=== PATIENT | male | born 1995 | race Hispanic/Latino ===

== ENCOUNTER 2018-08-28 08:29 | Inpatient (IN) | payer BC ==
[2018-08-28 09:11] LABS: Base Excess-Venous -10.4 mmol/L (-2.0 to 3.0); Bicarbonate (HCO3v) 14.4 mmol/L (22.0-28.0); CO2 Tension (PvCO2) 29.9 mmHg (40.0-50.0); Calcium, Ionized 1.04 mmol/L (See Comments:); Chloride 106 mmol/L (98-107); Hemoglobin - Calc 19.4 g/dL (14.0-18.0); O2 Tension (PvO2) 139.7 mmHg (35.0-45.0); Potassium 4.8 mmol/L (3.5-5.1); Sodium 131 mmol/L (138-145); T. Carbon Dioxide 15.3 mmol/L (22.0-28.0); pH (Venous) 7.291 (7.320-7.430); vO2 Saturation-calc 98.9 % (60.0-85.0)
[2018-08-28 09:30] LABS: Hemoglobin 16.9 g/dL (14.0-18.0); Mean Corpuscular HGB CONC 34.6 g/dL (32.0-36.0); Mean Corpuscular Hemoglobin 30.2 pg (27.0-31.0); Mean Corpuscular Volume 87.3 fL (78.0-98.0); Mean Platelet Volume 11.4 fL (7.4-10.4); Platelet Count 222 thou/uL (130-400); RBC Distribution Width 11.6 % (11.5-14.5); White Blood Cell (WBC) Count 21.5 thou/uL (4.8-10.8)
[2018-08-28 09:42] LABS: Band 24 % (5-11); Large Platelets SLIGHT; Lymphocytes 4 % (21-51); MDiff Complete? YES; Monocytes 3 % (0-10); Neutrophil 69 % (42-75); Platelet Morphology Comment Appears Adequate
[2018-08-28] MEDS ORDERED: Ondansetron PF 4 MG/2 ML Vial ONE (09:44)
[2018-08-28 10:06] LABS: Bilirubin Negative (Negative); Blood, Urine Moderate (Negative); Clarity CLEAR (Clear); Glucose, Urine (Dipstick) >=1000 mg/dL (Negative); Leukocyte Negative (Negative); Nitrite Negative (Negative); Protein, Urine (Dipstick) 300 mg/dL (Neg-Trace); Specific Gravity, Urine 1.039 (1.002-1.036); Urobilinogen 0.2 mg/dL (0.2-1.0); pH, Urine 5.5 (5.0-9.0)
[2018-08-28 10:11] LABS: Bacteria/HPF None Seen HPF (None Seen); Hyaline Casts/LPF 0-3 HYALINE CAST LPF (0-3 Hyaline); RBC/HPF 0-3 HPF (0-3); Squamous Epithelial None Seen HPF (0-3); WBC/HPF 0-3 HPF (0-3)
[2018-08-28] MEDS ORDERED: Insulin Regular 300 UNITS/3 ML VIAL ONE (10:13)
[2018-08-28] MEDS ORDERED: Morphine 4 MG/ML VIAL ONE (10:13)
--- NOTE | 2018-08-28 10:21 | CT ---
FCT of the abdomen and pelvis with IV contrast INDICATION: History of high blood sugar and abdominal pain FINDINGS: There is prominent fatty infiltration of the liver. There is edematous changes surrounding the pancreatic parenchyma without evidence of necrosis. There is mild fluid within the anterior parar enal space. The spleen, adrenal glands and kidneys appear within normal limits. There is mild wall th ickening of the duodenum which is likely reactive to the pancreatitis. There is normal in the right l ower quadrant. The bladder, rectum and perirectal soft tissues are unremarkable. No acute osseous ab normality is evident. IMPRESSION: 1. Uncomplicated acute pancreatitis. 2. Fatty liver 3. Some reactive wall thickening involving the duodenum likely from the patient's pancreatitis.
[2018-08-28] MEDS ORDERED: NS 0.9% w/ 20 MEQ KCL 1,000 ML IV SCH (10:30)
[2018-08-28 11:54] LABS: Chloride 103 mmol/L (98-107); Potassium 5.8 mmol/L (3.5-5.1); Sodium 133 mmol/L (136-145)
[2018-08-28 11:55] LABS: Anion Gap 26 mmol/L (10-20); BUN (Urea Nitrogen) 12 mg/dL (8.9-20.6); Calc. Creatinine Clearance 0 mL/min (70-130); Calcium 7.2 mg/dL (7.8-10.44); Estimated GFR-MDRD Greater than 90; Glucose 389 mg/dL (70-105)
[2018-08-28 11:56] LABS: AST (SGOT) 40 U/L (5-34); Alkaline Phosphatase 126 U/L (40-150); Bilirubin, Total 0.4 mg/dL (0.2-1.2); Globulin 2.1 g/dL (2.4-3.5); Protein, Total 6.1 g/dL (6.0-8.3)
[2018-08-28] MEDS ORDERED: Dextrose 5 %-0.45 % NaCl 1,000 ML IV PRN (11:56)
[2018-08-28] MEDS ORDERED: CCU Electrolyte Replacement 1 EACH IVPB ONE (11:56)
[2018-08-28] MEDS ORDERED: NS 0.9% w/ 20 MEQ KCL 1,000 ML IV PRN ×2 (11:56)
[2018-08-28] MEDS ORDERED: Sodium Chloride 0.9% 1,000 ML IV PRN ×3 (11:56)
[2018-08-28 11:58] LABS: ALT (SGPT) 83 U/L (8-55)
[2018-08-28 11:59] LABS: Carbon Dioxide 10 mmol/L (22-29)
[2018-08-28] MEDS ORDERED: HUMULIN R 100 UNITS in Sodium Chloride 0.9% 100 ML IVPB SCH (12:00)
[2018-08-28] MEDS ORDERED: HYDROmorphone 0.5 MG/0.5 ML SYRINGE ONE (13:20)
[2018-08-28] MEDS ORDERED: ISOVUE-370 76%-LOCM 1 ML ONE (14:55)
[2018-08-28 15:30] LABS: Sodium 134 mmol/L (136-145)
[2018-08-28 15:31] LABS: BUN (Urea Nitrogen) 11 mg/dL (8.9-20.6); Calc. Creatinine Clearance 0 mL/min (70-130); Carbon Dioxide Less than 16 mmol/L (22-29); Chloride 104 mmol/L (98-107); Estimated GFR-MDRD Greater than 90; Potassium 6.2 mmol/L (3.5-5.1)
[2018-08-28 15:32] LABS: Glucose 326 mg/dL (70-105)
[2018-08-28 17:31] VITALS: BMI 43.0
[2018-08-28 17:51] LABS: Sodium 136 mmol/L (136-145)
[2018-08-28 17:54] LABS: BUN (Urea Nitrogen) 10 mg/dL (8.9-20.6); Calc. Creatinine Clearance 203 mL/min (70-130); Carbon Dioxide 10 mmol/L (22-29); Chloride 110 mmol/L (98-107); Estimated GFR-MDRD Greater than 90; Potassium 6.7 mmol/L (3.5-5.1)
[2018-08-28 17:55] LABS: Calcium 7.8 mg/dL (7.8-10.44); Glucose 274 mg/dL (70-105)
[2018-08-28 17:57] LABS: Anion Gap 24 mmol/L (10-20)
[2018-08-28] MEDS ORDERED: Morphine 4 MG/ML VIAL IV PRN (18:21)
[2018-08-28] MEDS ORDERED: Calcium Gluconate 4.6 MEQ in Sodium Chloride 0.9% 100 ML IVPB SCH ×2 (18:30→21:00)
[2018-08-28] MEDS: Sodium Chloride 0.9% 1,000 ML IV PRN ×2 (19:31→23:13)
[2018-08-28 19:44] LABS: Sodium 127 mmol/L (136-145)
[2018-08-28 19:45] LABS: Chloride 101 mmol/L (98-107); Potassium 6.7 mmol/L (3.5-5.1)
[2018-08-28 19:47] LABS: BUN (Urea Nitrogen) 8 mg/dL (8.9-20.6); Carbon Dioxide Less than 8 mmol/L (22-29)
[2018-08-28 19:48] LABS: Calc. Creatinine Clearance 217 mL/min (70-130); Estimated GFR-MDRD Greater than 90
[2018-08-28 19:49] LABS: Calcium 7.3 mg/dL (7.8-10.44); Glucose 244 mg/dL (70-105)
[2018-08-28 20:12] LABS: Sodium 134 mmol/L (136-145)
[2018-08-28] MEDS: HUMULIN R 100 UNITS in Sodium Chloride 0.9% 100 ML IVPB SCH (20:14)
[2018-08-28 20:17] LABS: Potassium 8.2 mmol/L (3.5-5.1)
[2018-08-28 20:18] LABS: Chloride 110 mmol/L (98-107)
[2018-08-28 20:19] LABS: Carbon Dioxide 11 mmol/L (22-29)
[2018-08-28 20:20] LABS: BUN (Urea Nitrogen) 8 mg/dL (8.9-20.6); Calc. Creatinine Clearance 203 mL/min (70-130); Estimated GFR-MDRD Greater than 90
[2018-08-28 20:21] LABS: Calcium 7.3 mg/dL (7.8-10.44); Glucose 242 mg/dL (70-105)
[2018-08-28 20:22] LABS: Anion Gap 21 mmol/L (10-20)
--- NOTE | 2018-08-28 20:53 | PDOC.EVN ---
Event Note - Event Note Event Note: Called by nursing regarding DKA, K+ level 8.2 and tachycardia. Repeat K+ 5.0. Will add an additional peripheral IV with NS bolus, close monitoring or K+ level per protocol. Mild peaked T-waves on Tele, BP elevated and afebrile. Add Labetalol 20mg IV q4h prn SBP>180.
[2018-08-28 20:54] LABS: BUN (Urea Nitrogen) 6 mg/dL (8.9-20.6); Calc. Creatinine Clearance 191 mL/min (70-130); Calcium 8.4 mg/dL (7.8-10.44); Carbon Dioxide Less than 8 mmol/L (22-29); Chloride 109 mmol/L (98-107); Estimated GFR-MDRD 90; Glucose 241 mg/dL (70-105); Sodium 135 mmol/L (136-145)
[2018-08-28] MEDS ORDERED: Furosemide 20 MG/2 ML VIAL SLOW IVP SCH (21:00)
[2018-08-28] MEDS: Labetalol 5 MG/ML SYRINGE (IV ROOM) SLOW IVP PRN (22:02)
[2018-08-28] MEDS ORDERED: Sodium Chloride 0.9% 1,000 ML IV SCH (22:15)
--- NOTE | 2018-08-29 00:02 | HP ---
CHIEF COMPLAINT: Abdominal pain, nausea and vomiting. HISTORY OF PRESENT ILLNESS: The patient is a 23-year-old male with no past medical history, who presents to the hospital with complaints of abdominal pain and nausea and vomiting. The patient stated that for the past two or 3 days, he has been very thirsty, has been drinking a lot of water. Last night, he started having significant amount of nausea and vomiting, did not feel well. At this time, his mother who is a diabetic took his sugar, his sugar was in the 400s, gave him metformin hoping that that would relieve his high blood sugar. The patient continued to have significant amount of nausea, vomiting, and abdominal pain at this time. He came into the ER for further evaluation. PAST MEDICAL HISTORY: None. PAST SURGICAL HISTORY: None. FAMILY HISTORY: History of diabetes. ALLERGIES: NO KNOWN DRUG ALLERGIES. MEDICATIONS: He takes no medications. SOCIAL HISTORY: He occasionally drinks alcohol, maybe 1 beer 3 or 4 times a week. Denies any drug use or any smoking history. He lives with his parents and he is a full code. REVIEW OF SYSTEMS: All negative except for the ones mentioned above in the HPI. PHYSICAL EXAMINATION: VITAL SIGNS: Temperature of 98.8, heart rate of 120, blood pressure of 140/60, 100% on room air. GENERAL: He is awake, alert, and oriented x3. Does not appear in distress. HEENT: Normocephalic, atraumatic. No lymphadenopathy. Pupils are equal and reactive to light. CV: S1 and S2 present. No murmurs, rubs, or gallops. LUNGS: Clear to auscultation. No rhonchi or wheezes noted. ABDOMEN: Obese. Bowel sounds are present x2. He does have pain upon epigastric area and his right and left upper quadrant. NEUROLOGIC: No focal deficits noted. SKIN: No cuts, lesions, or bruises noted. LABORATORY RESULTS: As of the following; WBC of 21.5, hemoglobin of 16.9, hematocrit of 48.9, bands of 24. Chemistry; sodium of 134, potassium of 6.2, his bicarb was less than 16, anion gap was high, and his sugar on arrival was 451. He had a lipase of 742. He did have a blood gas, which indicated a VBG, pH of 7.2. He did have a CT abdomen and pelvis which indicated uncomplicated acute pancreatitis and some fatty liver. ASSESSMENT AND PLAN: The patient is a 23-year-old male, who presents to the hospital with nausea, vomiting, and abdominal pain. 1. Diabetic ketoacidosis. We will check a hemoglobin A1c. We will start the patient on insulin drip, resuscitate per DKA protocol on his fluids, n.p.o., and continue to monitor. 2. Mild pancreatitis. We will keep the patient n.p.o. for now. Continue hydration, hoping this will resolve. 3. Fatty liver. We will educate patient on weight loss, diet, and exercise. 4. Deep venous thrombosis prophylaxis. We will put the patient on subcu heparin. 5. Anion gap metabolic acidosis, most likely secondary to his diabetic ketoacidosis. The patient will be admitted into the ICU and also we will start the patient on GI prophylaxis with some Pepcid b.i.d. Job ID: [id number]
[2018-08-29 00:56] LABS: Anion Gap 14 mmol/L (10-20); BUN (Urea Nitrogen) 6 mg/dL (8.9-20.6); Calc. Creatinine Clearance 217 mL/min (70-130); Calcium 8.2 mg/dL (7.8-10.44); Carbon Dioxide 15 mmol/L (22-29); Chloride 112 mmol/L (98-107); Estimated GFR-MDRD Greater than 90; Glucose 208 mg/dL (70-105); Potassium 4.2 mmol/L (3.5-5.1); Sodium 137 mmol/L (136-145)
[2018-08-29] MEDS: D5 1/2 NS w/20 mEq KCL 1,000 ML IV PRN ×2 (03:13→06:08)
[2018-08-29] MEDS: HUMULIN R 100 UNITS in Sodium Chloride 0.9% 100 ML IVPB SCH ×2 (04:13→10:31)
[2018-08-29] MEDS: Labetalol 5 MG/ML SYRINGE (IV ROOM) SLOW IVP PRN (04:13)
[2018-08-29 05:47] LABS: Anion Gap 10 mmol/L (10-20); BUN (Urea Nitrogen) 5 mg/dL (8.9-20.6); Calc. Creatinine Clearance 229 mL/min (70-130); Calcium 8.3 mg/dL (7.8-10.44); Carbon Dioxide 19 mmol/L (22-29); Chloride 111 mmol/L (98-107); Estimated GFR-MDRD Greater than 90; Glucose 248 mg/dL (70-105); Sodium 136 mmol/L (136-145)
--- NOTE | 2018-08-29 14:33 | EKG ---
Test Reason : STAT Blood Pressure : / mmHG Vent. Rate : 121 BPM Atrial Rate : 121 BPM P-R Int : 164 ms QRS Dur : 088 ms QT Int : 310 ms P-R-T Axes : 015 132 011 degrees QTc Int : 440 ms Sinus tachycardia Right axis deviation Abnormal ECG No previous ECGs available Confirmed by FER RAMOS, DR. Green ([id number]) on 08/29/2018 2:32:37 PM Referred By: Corky WILEY Confirmed By:DR. Peter MONROE MD
[2018-08-29] MEDS ORDERED: D5 1/2 NS w/20 mEq KCL 1,000 ML IV PRN (14:55)
--- NOTE | 2018-08-29 15:24 | PRG ---
DATE OF SERVICE: 08/29/2018 SUBJECTIVE: The patient is seen and examined at the bedside. The patient's and his mother are present in the room. He denies any fever or chills at home. He denies any dysuria. He is feeling better. He does not vomit. He does not have any nausea anymore. OBJECTIVE: VITAL SIGNS: Blood pressure is 132/85, pulse is 104, temperature is 99.4. respiratory rate is about 30, O2 saturation is 95% on room air. HEENT: His head is atraumatic and normocephalic. Eyes are PERRLA. Sclerae are nonicteric. Oral mucosa is moist. NECK: Supple, obese. LUNGS: Clear. HEART: S1, S2 normal. No S3. No S4. Tachycardic. ABDOMEN: Obese. Bowel sounds are present. Nondistended. No organomegaly. EXTREMITIES: No clubbing, cyanosis, or edema. NEUROLOGICAL EXAMINATION: He is alert and oriented x4. There is no any motor or sensory deficit present. Cranial nerves are intact. LABORATORY DATA: Labs showed sodium of 136, potassium 4.0, chloride 111, CO2 of 19, BUN 5, creatinine 0.85. Glycemia is ranging from 185 to 260. Microbiology, none. IMPRESSION: 1. Diabetic ketoacidosis. 2. Mild pancreatitis. 3. Fatty liver. 4. Morbid obesity. PLAN: The patient's anion gap is closed. We can now switch him to insulin Lantus plus aggressive sliding scale. Change Accu-Cheks to every 4 hours, his lipase level. Start him on clear liquids and full liquid diet. Job ID: [id number]
[2018-08-29] MEDS: Insulin Glargine 20 UNITS in Pre-Filled Syringe 1 EACH SC SCH (16:40)
[2018-08-29] MEDS ORDERED: Dextrose 5% in Water 1,000 ML IV PRN (19:30)
[2018-08-29] MEDS ORDERED: Dextrose 50% Abboject 50 ML SYRINGE IVP PRN (19:30)
[2018-08-29] MEDS: Insulin Regular 300 UNITS/3 ML VIAL SC PRN ×2 (20:21→23:36)
[2018-08-30] MEDS: Insulin Regular 300 UNITS/3 ML VIAL SC PRN ×4 (03:47→22:15)
[2018-08-30 04:41] LABS: #Basophils 0.1 thou/uL (0.0-0.2); #Eosinphils 0.3 thou/uL (0.0-0.7); #Lymphocytes 2.1 thou/uL (1.20-3.40); #Monocytes 0.9 thou/uL (0.11-0.59); #Neutrophils 12.2 thou/uL (1.40-6.50); %Basophils 0.4 % (0.0-1.0); %Eosinophils 1.6 % (0.0-10.0); %Lymphocytes 13.4 % (21.0-51.0); %Neutrophils 78.6 % (42.0-75.0); Hemoglobin 15.3 g/dL (14.0-18.0); Mean Corpuscular HGB CONC 33.4 g/dL (32.0-36.0); Mean Corpuscular Hemoglobin 29.9 pg (27.0-31.0); Mean Corpuscular Volume 89.5 fL (78.0-98.0); Mean Platelet Volume 10.4 fL (7.4-10.4); Platelet Count 179 thou/uL (130-400); RBC Distribution Width 11.8 % (11.5-14.5); White Blood Cell (WBC) Count 15.6 thou/uL (4.8-10.8)
[2018-08-30 05:02] LABS: Anion Gap 13 mmol/L (10-20); BUN (Urea Nitrogen) 5 mg/dL (8.9-20.6); Calc. Creatinine Clearance 266 mL/min (70-130); Carbon Dioxide 22 mmol/L (22-29); Chloride 101 mmol/L (98-107); Estimated GFR-MDRD Greater than 90; Glucose 227 mg/dL (70-105); Lipase 235 U/L (8-78); Potassium 3.8 mmol/L (3.5-5.1); Sodium 132 mmol/L (136-145)
[2018-08-30] MEDS: Insulin Glargine 20 UNITS in Pre-Filled Syringe 1 EACH SC SCH (10:02)
--- NOTE | 2018-08-30 13:56 | PRG ---
DATE OF SERVICE: SUBJECTIVE: The patient is seen and examined at the bedside. He is in B4. He is feeling significantly better. He is tolerating his clear liquids without any significant abdominal discomfort. No nausea. No vomiting. No diarrhea. OBJECTIVE: VITAL SIGNS: His blood pressure is 134/80, pulse is 111, respiratory rate is 26, and O2 saturation is 94%on room air. He is obese. His BMI is 44. HEENT: His head is atraumatic and normocephalic. His eyes are PERRLA. Sclerae nonicteric. Oral mucosa is moist. NECK: Supple, obese. LUNGS: Clear. HEART: S1 and S2 normal. No S3, no S4. ABDOMEN: Obese, soft, nontender. EXTREMITIES: No clubbing, cyanosis, or edema. NEUROLOGICAL: He is alert and oriented x4. There is no any motor or sensory deficits present. Cranial nerves are intact. LABORATORY DATA: Labs showed white count of 15.6, hemoglobin 15.3, hematocrit 45.6, platelet count is 179, neutrophils 78.6. Sodium of 132, potassium 3.8, chloride 101, CO2 of 22, BUN 5, creatinine 0.74. Glycemia is ranging from 237 to 291, lipase is 235, calcium 9.0. IMPRESSION: 1. DKA, resolved. The patient is switched to long-acting insulin plus sliding scale aggressive. 2. Mild pancreatitis, improving. We will advance his diet. 3. Fatty liver. 4. Morbid obesity. PLAN: As mentioned above, he will continue on insulin long-acting and short-acting. We will advance his diet as tolerated and he is getting education about diabetes and his weight, and he should be able to go home in the next 24 to 48 hours. Job ID: [id number]
[2018-08-30] MEDS: HYDROcodone/Acetaminophen 5/325 mg Tablet PO PRN (20:39)
[2018-08-31] MEDS: Insulin Regular 300 UNITS/3 ML VIAL SC PRN ×7 (00:42→23:17)
[2018-08-31 05:39] LABS: Anion Gap 14 mmol/L (10-20); BUN (Urea Nitrogen) 8 mg/dL (8.9-20.6); Calc. Creatinine Clearance 291 mL/min (70-130); Calcium 8.8 mg/dL (7.8-10.44); Carbon Dioxide 23 mmol/L (22-29); Chloride 100 mmol/L (98-107); Estimated GFR-MDRD Greater than 90; Glucose 196 mg/dL (70-105); Lipase 249 U/L (8-78); Sodium 134 mmol/L (136-145)
[2018-08-31] MEDS: Insulin Glargine 30 UNITS in Pre-Filled Syringe 1 EACH SC SCH (09:17)
[2018-08-31] MEDS: Potassium Chloride 20 MEQ TAB PO SCH ×3 (12:46→21:12)
--- NOTE | 2018-08-31 17:35 | PRG ---
DATE OF SERVICE: 08/31/2018 SUBJECTIVE: The patient is seen and examined at the bedside. He is doing significantly better. He is tolerating food without any abdominal pain. He is able to go to the bathroom without assistance. OBJECTIVE: VITAL SIGNS: Blood pressure is 143/82, pulse is 100, respiratory rate is 23, and oximetry is 94% on room air. He is obese. His BMI is 43.2. HEENT: His head is atraumatic and normocephalic. Eyes are PERRLA. Sclerae are nonicteric. Oral mucosa is moist. NECK: Supple. No lymphadenopathy. Thyroid is not palpable. LUNGS: Clear. HEART: S1, S2 normal. Somewhat tachycardic. No S3. No S4. ABDOMEN: Soft, obese, and nontender. EXTREMITIES: No clubbing, cyanosis, or edema. NEUROLOGIC: He is alert and oriented x4. There is no any motor or sensory deficits. Cranial nerves are intact. LABORATORY DATA: Labs showed sodium of 134, potassium 3.0, chloride 100, CO2 of 23, BUN 8, and creatinine 0.69. Glycemia is ranging from 200 to 238. Lipase is 249. Calcium is 8.8. IMPRESSION: 1. Diabetic ketoacidosis, resolved. 2. Mild pancreatitis, improving. 3. Fatty liver. 4. Morbid obesity. PLAN: The patient is started on high dose of long-acting insulin every morning. It is Lantus 30 units along with sliding scale. We will replace his potassium and he can be moved to the medical floor, and he should be able to go home tomorrow. Job ID: [id number]
[2018-08-31 20:49] LABS: Anion Gap 14 mmol/L (10-20); BUN (Urea Nitrogen) 8 mg/dL (8.9-20.6); Calc. Creatinine Clearance 244 mL/min (70-130); Calcium 9.3 mg/dL (7.8-10.44); Carbon Dioxide 25 mmol/L (22-29); Chloride 101 mmol/L (98-107); Estimated GFR-MDRD Greater than 90; Glucose 226 mg/dL (70-105); Potassium 3.6 mmol/L (3.5-5.1); Sodium 136 mmol/L (136-145)
[2018-08-31] MEDS ORDERED: diphenhydrAMINE 25 MG CAP PO PRN (22:44)
[2018-09-01] MEDS: HYDROcodone/Acetaminophen 5/325 mg Tablet PO PRN (00:05)
[2018-09-01] MEDS: Insulin Regular 300 UNITS/3 ML VIAL SC PRN ×3 (05:46→16:44)
[2018-09-01 07:21] LABS: Anion Gap 14 mmol/L (10-20); BUN (Urea Nitrogen) 10 mg/dL (8.9-20.6); Calc. Creatinine Clearance 238 mL/min (70-130); Calcium 9.1 mg/dL (7.8-10.44); Carbon Dioxide 24 mmol/L (22-29); Chloride 102 mmol/L (98-107); Estimated GFR-MDRD Greater than 90; Glucose 186 mg/dL (70-105); Sodium 136 mmol/L (136-145)
[2018-09-01] MEDS: Insulin Glargine 30 UNITS in Pre-Filled Syringe 1 EACH SC SCH (08:32)
[2018-09-01 13:19] VITALS: BP 123/82; TEMP 98.5
--- NOTE | 2018-09-02 03:58 | DIS ---
DATE OF ADMISSION: 08/28/2018 DATE OF DISCHARGE: 09/01/2018 FINAL DIAGNOSES: 1. Diabetic ketoacidosis. 2. New onset diabetes mellitus. 3. Mild pancreatitis. 4. Fatty liver. 5. Morbid obesity. HOSPITAL COURSE: The patient is a 23-year-old male with no past medical history, who presented to the emergency room with abdominal pain, nausea, and vomiting. He was found to be in diabetic ketoacidosis. In the emergency room, his heart rate was up to 120, blood pressure 140/60, temperature was 98.8. His white count was 21.5, hemoglobin 16.9, hematocrit 48.9, and he had 24 bands. Sodium 134, potassium 6.2, bicarb was less than 16, blood sugar was 451, lipase was 742. VBG showed pH of 7.2. He did have CT of the abdomen and pelvis, which indicated uncomplicated acute pancreatitis and some fatty liver. He got admitted to the [facility] with DKA protocol on IV fluids and electrolyte replacement protocol. He was kept on n.p.o., then gradually his diet was advanced. He tolerated food with occasional abdominal discomfort. His lipase is down to 200s this morning. He still has some abdominal discomfort after the dinner, but this is gradually getting better. He was gradually switched from insulin drip to long-acting and short-acting insulins gradually went down with IV fluids and n.p.o. status. His urine showed 300s of proteins and more than 1000 of glucose, more than 80 of ketones in the beginning but this gradually got better. His potassium is down to 4.0. His glycemia is ranging from 200s to 258, and he is seen and evaluated before he is discharged. PHYSICAL EXAMINATION: VITAL SIGNS: His blood pressure is 123/82, pulse is 93, temperature is 98.5, respiratory rate is 18, and O2 saturation is 96% on room air. LUNGS: Clear. HEART: S1 and S2, normal. ABDOMEN: Soft, obese, nontender. He is discharged home on two insulins, one is short-acting and this is going to cover aggressive sliding scale a.c. and at bedtime and long-acting Lantus 30 units once a day. FOLLOWUP: He will follow up with primary care physician in 1 week and the discharge time spent on this is less than 30 minutes. Job ID: [id number]
== END 2018-09-01 17:39 | disposition home or self-care (01) | DRG 637 ==
LOC: ERS 08:29 → ERHOLD 11:30 → IMCU/EMU 16:55 → T4-A 08-31 14:19
PROVIDERS: ADMIT Internal Medicine; ATTEND Internal Medicine
DX: E11.10 Type 2 diabetes mellitus with ketoacidosis without coma (principal); K85.90 Acute pancreatitis without necrosis or infection, unspecified; E87.2 Acidosis; Z68.41 Body mass index [BMI] 40.0-44.9, adult; Z79.4 Long term (current) use of insulin; K76.0 Fatty (change of) liver, not elsewhere classified; E66.01 Morbid (severe) obesity due to excess calories
CPT/HCPCS: 36415; 36416; 74177; 80048; 80053; 81003; 81015; 82010; 82330; 82803; 83690; 85025; 93005; 93010; 94760; 96360; 96361; 96365; 96366; 96375; 96376; J1170; J1815; J1825; J2270; J2405; J7050; Q0163; Q9966

== ENCOUNTER 2021-10-16 10:40 | Emergency (ER) | payer BC, SELFPAY | END 2021-10-16 12:36 | disposition home or self-care (01) | LOC: ERS 10:40 | DX: N48.1 Balanitis (principal); E10.9 Type 1 diabetes mellitus without complications; E78.5 Hyperlipidemia, unspecified; Z79.4 Long term (current) use of insulin; Z79.84 Long term (current) use of oral hypoglycemic drugs; Z79.899 Other long term (current) drug therapy | CPT/HCPCS: 99283 ==

== ENCOUNTER 2023-01-17 09:58 | Inpatient (IN) | payer SELFPAY ==
[2023-01-17 11:01] LABS: #Basophils 0.1 thou/uL (0.0-0.2); #Eosinphils 0.1 thou/uL (0.0-0.7); #Monocytes 0.3 thou/uL (0.11-0.59); #Neutrophils 3.8 thou/uL (1.40-6.50); %Basophils 0.9 % (0.0-1.0); %Eosinophils 0.9 % (0.0-10.0); %Lymphocytes 32.3 % (21.0-51.0); %Monocytes 5.4 % (0.0-10.0); %Neutrophils 59.7 % (42.0-75.0); Hematocrit 46.7 % (42.0-52.0); Hemoglobin 16.4 g/dL (14.0-18.0); Mean Corpuscular HGB CONC 35.1 g/dL (32.0-36.0); Mean Corpuscular Hemoglobin 28.9 pg (27.0-31.0); Mean Corpuscular Volume 82.2 fl (78.0-98.0); Mean Platelet Volume 11.2 fL (7.4-10.4); Platelet Count 251 10x3/uL (130-400); RBC Distribution Width 12.1 % (11.5-14.5); Red Blood Cell (RBC) Count 5.68 mill/uL (4.70-6.10); White Blood Cell (WBC) Count 6.3 10x3/uL (4.8-10.8)
[2023-01-17 11:23] LABS: ALT (SGPT) 15 U/L (8-55); AST (SGOT) 17 U/L (5-34); Albumin 4.9 g/dL (3.5-5.0); Alkaline Phosphatase 121 U/L (40-110); Anion Gap 24 mmol/L (10-20); BUN (Urea Nitrogen) 13 mg/dL (8.9-20.6); Bilirubin, Total 0.4 mg/dL (0.2-1.2); Calc. Creatinine Clearance 0 mL/min (70-130); Calcium 9.9 mg/dL (7.8-10.44); Carbon Dioxide 16 mmol/L (22-29); Chloride 100 mmol/L (98-107); Estimated GFR 107; Globulin 4.3 g/dL (2.4-3.5); Glucose 314 mg/dL (70-105); Potassium 3.9 mmol/L (3.5-5.1); Protein, Total 9.2 g/dL (6.0-8.3); Sodium 136 mmol/L (136-145)
[2023-01-17 11:37] LABS: SARS-CoV-2 NAA Rapid Test Not Detected (NotDetected)
[2023-01-17] MEDS ORDERED: Dexamethasone 10 MG/ML VIAL ONE (11:46)
[2023-01-17] MEDS ORDERED: Ipratropium/Albuterol 3 ML NEB ONE (11:46)
[2023-01-17] MEDS ORDERED: cefTRIAXone (ROCEPHIN) 1 GM VIAL ONE (12:47)
[2023-01-17] MEDS ORDERED: Ipratropium Bromide 2.5 ml Neb NEB PRN (13:20)
[2023-01-17] MEDS ORDERED: Ondansetron PF 4 MG/2 ML Vial IVP PRN (13:20)
[2023-01-17] MEDS ORDERED: Calcium Carbonate 500 MG ChewTAB PO PRN (13:20)
[2023-01-17] MEDS ORDERED: Senokot S 8.6-50 MG TAB PO PRN (13:20)
[2023-01-17] MEDS ORDERED: Glucagon 1 MG/ML KIT IM PRN (13:26)
[2023-01-17] MEDS ORDERED: Dextrose 50% Abboject 50 ML SYRINGE SLOW IVP PRN (13:26)
[2023-01-17] MEDS ORDERED: Dextrose 5% in Water 1,000 ML IV PRN (13:26)
[2023-01-17] MEDS ORDERED: Azithromycin 500 MG in Sodium Chloride 0.9% 250 ML 250 ML IVPB SCH (13:30)
[2023-01-17] MEDS ORDERED: Sodium Chloride 0.9% 1,000 ML IV SCH ×2 (13:59→17:30)
[2023-01-17] MEDS ORDERED: Ipratropium/Albuterol 3 ML NEB NEB SCH (15:30)
[2023-01-17] MEDS: Benzonatate 100 MG CAP PO SCH ×2 (16:11→20:21)
[2023-01-17 16:22] LABS: Anion Gap 22 mmol/L (10-20); BUN (Urea Nitrogen) 12 mg/dL (8.9-20.6); Calc. Creatinine Clearance 0 mL/min (70-130); Calcium 9.1 mg/dL (7.8-10.44); Carbon Dioxide 14 mmol/L (22-29); Chloride 102 mmol/L (98-107); Estimated GFR 103; Glucose 380 mg/dL (70-105); Potassium 4.5 mmol/L (3.5-5.1); Sodium 133 mmol/L (136-145)
[2023-01-17 16:51] VITALS: BMI 35.5
[2023-01-17] MEDS ORDERED: Insulin Regular 300 UNITS/3 ML VIAL IVP SCH ×2 (17:30→22:00)
[2023-01-17] MEDS: HumaLOG 300 UNITS/3 ML VIAL SC PRN ×2 (17:47→20:22)
[2023-01-17] MEDS: methylPREDNISolone Sod Succ 40 MG VIAL IVP SCH (17:52)
[2023-01-17] MEDS: Ipratropium/Albuterol 3 ML NEB NEB SCH ×2 (19:06→23:55)
[2023-01-17 21:46] LABS: Anion Gap 21 mmol/L (10-20); BUN (Urea Nitrogen) 13 mg/dL (8.9-20.6); Calc. Creatinine Clearance 148 mL/min (70-130); Calcium 9.2 mg/dL (7.8-10.44); Carbon Dioxide 10 mmol/L (22-29); Chloride 104 mmol/L (98-107); Estimated GFR 100; Glucose 375 mg/dL (70-105); Potassium 4.1 mmol/L (3.5-5.1); Sodium 131 mmol/L (136-145)
[2023-01-17] MEDS ORDERED: Lactated Ringer's 1,000 ML IV SCH (22:00)
[2023-01-17] MEDS: Sodium Chloride 0.9% 1,000 ML IV SCH (22:19)
[2023-01-18] MEDS: methylPREDNISolone Sod Succ 40 MG VIAL IVP SCH ×5 (00:26→23:46)
[2023-01-18 01:12] LABS: Anion Gap 18 mmol/L (10-20); BUN (Urea Nitrogen) 11 mg/dL (8.9-20.6); Calc. Creatinine Clearance 177 mL/min (70-130); Calcium 8.9 mg/dL (7.8-10.44); Carbon Dioxide 12 mmol/L (22-29); Chloride 105 mmol/L (98-107); Estimated GFR 120; Glucose 317 mg/dL (70-105); Potassium 4.4 mmol/L (3.5-5.1); Sodium 131 mmol/L (136-145)
[2023-01-18] MEDS: HumaLOG 300 UNITS/3 ML VIAL SC PRN ×5 (01:32→20:15)
[2023-01-18] MEDS: Sodium Chloride 0.9% 1,000 ML IV SCH ×4 (05:25→20:19)
[2023-01-18] MEDS: Ipratropium/Albuterol 3 ML NEB NEB SCH ×3 (07:06→18:33)
[2023-01-18] MEDS: Insulin Glargine 30 UNITS/0.3 ML VIAL SC SCH (08:27)
[2023-01-18] MEDS: Benzonatate 100 MG CAP PO SCH ×3 (08:27→20:15)
[2023-01-18] MEDS: Azithromycin 500 MG in Sodium Chloride 0.9% 250 ML 250 ML IVPB SCH (08:29)
[2023-01-18] MEDS: cefTRIAXone\\ROCEPHIN 1 GM in Sodium Chloride 0.9% 100 ML IVPB SCH (08:29)
[2023-01-18 08:56] LABS: Hemoglobin A1c 13.2 % (4.0-6.0)
[2023-01-18 09:10] LABS: #Monocytes 0.3 thou/uL (0.11-0.59); #Neutrophils 10.2 thou/uL (1.40-6.50); %Basophils 0.2 % (0.0-1.0); %Lymphocytes 12.9 % (21.0-51.0); %Monocytes 2.3 % (0.0-10.0); %Neutrophils 83.9 % (42.0-75.0); Hematocrit 43.6 % (42.0-52.0); Hemoglobin 14.9 g/dL (14.0-18.0); Mean Corpuscular HGB CONC 34.2 g/dL (32.0-36.0); Mean Corpuscular Hemoglobin 29.2 pg (27.0-31.0); Mean Platelet Volume 11.1 fL (7.4-10.4); Platelet Count 244 10x3/uL (130-400); RBC Distribution Width 12.1 % (11.5-14.5); White Blood Cell (WBC) Count 12.1 10x3/uL (4.8-10.8)
[2023-01-18 09:11] LABS: ALT (SGPT) 12 U/L (8-55); AST (SGOT) 9 U/L (5-34); Albumin 4.5 g/dL (3.5-5.0); Alkaline Phosphatase 106 U/L (40-110); Anion Gap 18 mmol/L (10-20); BUN (Urea Nitrogen) 10 mg/dL (8.9-20.6); Bilirubin, Total 0.5 mg/dL (0.2-1.2); Calc. Creatinine Clearance 171 mL/min (70-130); Calcium 9.5 mg/dL (7.8-10.44); Carbon Dioxide 14 mmol/L (22-29); Chloride 105 mmol/L (98-107); Estimated GFR 119; Globulin 3.3 g/dL (2.4-3.5); Glucose 317 mg/dL (70-105); Potassium 3.9 mmol/L (3.5-5.1); Protein, Total 7.8 g/dL (6.0-8.3); Sodium 133 mmol/L (136-145)
[2023-01-18 09:15] LABS: Mean Corpuscular Volume 85.5 fl (78.0-98.0)
[2023-01-18] MEDS: Sodium Bicarbonate Tab 325 MG TAB PO SCH ×3 (09:36→20:15)
[2023-01-18] MEDS: Acetaminophen 325 MG TAB PO PRN ×2 (12:23→20:14)
[2023-01-18] MEDS: Guaifenesin DM 100-10/5 ML UDCUP PO PRN ×2 (12:23→20:14)
[2023-01-19] MEDS: methylPREDNISolone Sod Succ 40 MG VIAL IVP SCH ×2 (05:37→12:11)
[2023-01-19] MEDS: Guaifenesin DM 100-10/5 ML UDCUP PO PRN (05:40)
[2023-01-19] MEDS: HumaLOG 300 UNITS/3 ML VIAL SC PRN ×2 (05:42→12:30)
[2023-01-19] MEDS: Sodium Chloride 0.9% 1,000 ML IV SCH (07:04)
[2023-01-19] MEDS: Azithromycin 500 MG in Sodium Chloride 0.9% 250 ML 250 ML IVPB SCH (08:21)
[2023-01-19] MEDS: Sodium Bicarbonate Tab 325 MG TAB PO SCH (08:22)
[2023-01-19] MEDS: Benzonatate 100 MG CAP PO SCH (08:22)
[2023-01-19] MEDS: cefTRIAXone\\ROCEPHIN 1 GM in Sodium Chloride 0.9% 100 ML IVPB SCH (08:22)
[2023-01-19] MEDS: Insulin Glargine 30 UNITS/0.3 ML VIAL SC SCH (08:22)
[2023-01-19 08:26] LABS: Anion Gap 16 mmol/L (10-20); BUN (Urea Nitrogen) 14 mg/dL (8.9-20.6); Calc. Creatinine Clearance 173 mL/min (70-130); Calcium 9.4 mg/dL (7.8-10.44); Carbon Dioxide 19 mmol/L (22-29); Chloride 103 mmol/L (98-107); Estimated GFR 119; Glucose 306 mg/dL (70-105); Magnesium 1.9 mg/dL (1.6-2.6); Potassium 3.8 mmol/L (3.5-5.1); Sodium 134 mmol/L (136-145)
[2023-01-19] MEDS ORDERED: HumaLOG 300 UNITS/3 ML VIAL SC SCH ×2 (12:30→13:45)
[2023-01-19] MEDS ORDERED: Sodium Chloride 0.9% 500 ML IVPB SCH (12:30)
[2023-01-19 14:51] VITALS: BP 102/61; TEMP 97.9
== END 2023-01-19 14:53 | disposition home or self-care (01) | DRG 193 ==
LOC: ERS 09:58 → SUATTDRO 09:58 → T4-A 13:13 → OBSVTOIN 01-18 12:28
PROVIDERS: ADMIT Internal Medicine; ATTEND Internal Medicine
DX: J18.9 Pneumonia, unspecified organism (principal); E10.10 Type 1 diabetes mellitus with ketoacidosis without coma; R55 Syncope and collapse; Z20.822 Contact with and (suspected) exposure to COVID-19; Z79.4 Long term (current) use of insulin; Z88.5 Allergy status to narcotic agent
CPT/HCPCS: 36415; 36416; 71045; 80048; 80053; 82010; 83036; 83605; 83735; 84145; 85025; 87040; 93005; 94640; 96365; 96375; 96376; G0378; J0456; J0696; J1100; J1815; J2920; J3490; J7030; J7050; J7120; J7620

== ENCOUNTER 2023-03-07 08:24 | Emergency (ER) | payer SELFPAY ==
[2023-03-07 09:04] LABS: #Basophils 0.1 thou/uL (0.0-0.2); #Eosinphils 0.1 thou/uL (0.0-0.7); #Monocytes 0.5 thou/uL (0.11-0.59); #Neutrophils 2.7 thou/uL (1.40-6.50); %Eosinophils 1.4 % (0.0-10.0); %Monocytes 9.8 % (0.0-10.0); %Neutrophils 53.4 % (42.0-75.0); Hematocrit 45.5 % (42.0-52.0); Hemoglobin 15.6 g/dL (14.0-18.0); Mean Corpuscular HGB CONC 34.3 g/dL (32.0-36.0); Mean Corpuscular Volume 84.6 fl (78.0-98.0); Platelet Count 232 10x3/uL (130-400); RBC Distribution Width 12.4 % (11.5-14.5); Red Blood Cell (RBC) Count 5.38 mill/uL (4.70-6.10); White Blood Cell (WBC) Count 5.1 10x3/uL (4.8-10.8)
[2023-03-07 09:30] LABS: ALT (SGPT) 16 U/L (8-55); AST (SGOT) 13 U/L (5-34); Albumin 4.7 g/dL (3.5-5.0); Alkaline Phosphatase 111 U/L (40-110); Anion Gap 17 mmol/L (10-20); BUN (Urea Nitrogen) 13 mg/dL (8.9-20.6); Bilirubin, Total 0.3 mg/dL (0.2-1.2); Calc. Creatinine Clearance 0 mL/min (70-130); Calcium 9.7 mg/dL (7.8-10.44); Carbon Dioxide 22 mmol/L (22-29); Chloride 100 mmol/L (98-107); Estimated GFR 120; Globulin 2.8 g/dL (2.4-3.5); Glucose 325 mg/dL (70-105); Lipase 30 U/L (8-78); Protein, Total 7.5 g/dL (6.0-8.3); Sodium 135 mmol/L (136-145)
[2023-03-07] MEDS ORDERED: Aspirin Chewable 81 MG TAB ONE (09:32)
[2023-03-07 09:34] LABS: Troponin I Less than 0.010 ng/mL (< 0.028)
[2023-03-07 10:28] LABS: SARS-CoV-2 NAA Rapid Test Not Detected (NotDetected)
== END 2023-03-07 12:04 | disposition home or self-care (01) ==
LOC: ERS 08:24
DX: R07.9 Chest pain, unspecified (principal); E10.9 Type 1 diabetes mellitus without complications; E78.5 Hyperlipidemia, unspecified; Z20.822 Contact with and (suspected) exposure to COVID-19
CPT/HCPCS: 36416; 71045; 80053; 83690; 84484; 85025; 85379; 93005